=== PATIENT | male | born 1950 | race American Indian/Alaskan Native ===

== ENCOUNTER 2021-05-24 12:44 | Outpatient (CLI) | payer OTHER ==
--- NOTE | 2021-05-24 14:16 | Ultrasound Report ---
BILATERAL DIGITAL DIAGNOSTIC MAMMOGRAM WITH CAD CONVENTIONAL, 05/24/2021 LEFT COMPLETE BREAST ULTRASOUND CLINICAL INFORMATION / INDICATION: Patient presents for evaluation of left breast pain and swelling. MASTODYNIA TECHNIQUE: Digital bilateral mammographic imaging was performed. Complete ultrasound of all four (4) quadrants was performed. This examination was interpreted with the benefit of Computer-Aided Detectio n (CAD) analysis. COMPARISON: None FINDINGS: Breast Density: There are scattered areas of fibroglandular density. MAMMOGRAPHIC FINDINGS: No dominant mass, suspicious calcifications, or architectural distortion in ei ther breast. There is a moderate amount of asymmetric fibroglandular tissue in the central left breas t, most compatible with asymmetric gynecomastia. Targeted ultrasound was performed for further evalua tion. ULTRASOUND FINDINGS: Complete sonographic evaluation of all 4 quadrants and retroareolar region was p erformed. Complete ultrasound of the left breast reveals normal fibroglandular tissue. No suspiciou s cystic or solid lesion identified. IMPRESSION: 1. Asymmetric left gynecomastia accounts for left breast pain and swelling. Recommend clinical correl ation for potential underlying etiology. Follow up recommendation: No recall. BI-RADS Category 2: Benign. A "normal" or negative report should not discourage follow up or biopsy of a clinically significant f inding. A written summary of these findings will be mailed to the patient. The patient will be entered into a mammography reporting system which will generate a reminder letter for the patient's next appointmen t at the appropriate interval. According to the [employer], yearly mammograms are recommended starting at age 40 and continuing as long as a woman is in good health. Breast MRI is recommended for women with an татьяна roximately 20-25% or greater lifetime risk of breast cancer, including women with a strong family his tory of breast or ovarian cancer and women who have been treated for Hodgkin's disease. Signer Name: Orquidea Peaz MD Signed: 05/24/2021 2:12 PM Workstation Name: [id number]
== END 2021-05-24 12:45 | disposition home or self-care (01) ==
LOC: MAMMO 12:44
PROVIDERS: ATTEND Internal Medicine
DX: N62 Hypertrophy of breast (principal); N64.4 Mastodynia
CPT/HCPCS: 77066

== ENCOUNTER 2021-12-30 14:36 | Outpatient (CLI) | payer OTHER ==
--- NOTE | 2021-12-30 17:43 | Mammography Report ---
LEFT DIGITAL DIAGNOSTIC MAMMOGRAM WITH CAD , 12/30/2021 LEFT LIMITED BREAST ULTRASOUND CLINICAL INFORMATION / INDICATION: Patient has known gynecomastia in the left breast. He feels that t he left breast has enlarged. TECHNIQUE: Digital left mammographic imaging was performed. Limited ultrasound was performed. This ex amination was interpreted with the benefit of Computer-Aided Detection (CAD) analysis. COMPARISON: Prior mammogram 05/24/2021 FINDINGS: Breast Density: The breasts are heterogeneously dense, which may obscure small masses. MAMMOGRAPHIC FINDINGS: As noted on the prior mammogram from 05/24/2021, there is moderate amount of fi broglandular tissue throughout the central and subareolar left breast consistent with gynecomastia. G ynecomastia actually appears slightly improved compared with the prior mammogram. No discrete mass or abnormal calcifications are noted. Ultrasound will be performed for further evaluation. ULTRASOUND FINDINGS: Targeted ultrasound evaluation was performed of the area of interest. Sonograp hic evaluation of the left breast does not demonstrate any discrete mass or focal area of shadowing. There is heterogeneous tissue in the subareolar region consistent with known gynecomastia. IMPRESSION: No mammographic or sonographic evidence of malignancy. Prominent left gynecomastia is aga in noted. There may be subtle improvement in the degree of gynecomastia compared with 05/24/2021 prior exam. No new findings. Follow up recommendation: No recall. BI-RADS Category 2: BENIGN. A "normal" or negative report should not discourage follow up or biopsy of a clinically significant f inding. A written summary of these findings will be mailed to the patient. The patient will be entered into a mammography reporting system which will generate a reminder letter for the patient's next appointmen t at the appropriate interval. According to the [employer], yearly mammograms are recommended starting at age 40 and continuing as long as a woman is in good health. Breast MRI is recommended for women with an татьяна roximately 20-25% or greater lifetime risk of breast cancer, including women with a strong family his tory of breast or ovarian cancer and women who have been treated for Hodgkin's disease. Signer Name: Milena Solitario MD Signed: 12/30/2021 5:39 PM Workstation Name: [id number]
== END 2021-12-30 14:37 | disposition home or self-care (01) ==
LOC: MAMMO 14:36
PROVIDERS: ATTEND Internal Medicine
DX: R92.8 Other abnormal and inconclusive findings on diagnostic imaging of breast (principal)

== ENCOUNTER 2022-04-08 17:03 | Emergency (ER) | payer OTHER ==
[2022-04-08] MEDS ORDERED: SODIUM CHLORIDE 0.9% 1000 ML 1,000 ML IV ONE (17:12)
[2022-04-08 18:10] LABS: Basophils # (Auto) 0.1 K/mm3 (0.0-0.1); Basophils % (Auto) 1.8 % (0.0-1.8); Hematocrit 32.4 % (35.5-45.6); Hemoglobin 10.8 gm/dl (11.8-15.2); Lymphocytes # (Auto) 0.4 K/mm3 (1.2-5.4); Lymphocytes % (Auto) 11.1 % (13.4-35.0); Mean Corpuscular HGB Conc 34 % (32-34); Mean Corpuscular Volume 91 fl (84-94); Monocytes # (Auto) 0.3 K/mm3 (0.0-0.8); Monocytes % (Auto) 6.9 % (0.0-7.3); Platelet Count 163 K/mm3 (140-440); Red Blood Count 3.55 M/mm3 (3.65-5.03); Red Cell Distribution Width 14.5 % (13.2-15.2)
[2022-04-08 18:34] LABS: Calcium 9.4 mg/dL (8.4-10.2)
[2022-04-08 19:53] LABS: C-Reactive Protein 1.4 mg/dL (0.00-1.30)
--- NOTE | 2022-04-08 22:18 | Cat Scan Report ---
CT HEAD WITHOUT CONTRAST INDICATION / CLINICAL INFORMATION: AMS. TECHNIQUE: All CT scans at this location are performed using CT dose reduction for ALARA by means of automated exposure control. COMPARISON: CT head without contrast from 09/23/2021. FINDINGS: BRAIN PARENCHYMA: No acute intracranial hemorrhage. No evidence of recent infarct. No mass effect or midline shift. Chronic microvascular ischemic changes are again seen. VENTRICULAR SYSTEM/EXTRA-AXIAL SPACES: Ventricles are normal for age. No extra-axial fluid collection . ORBITS: Normal as visualized. SKELETAL SYSTEM/SOFT TISSUES: Normal bones and soft tissues. PARANASAL SINUSES/MASTOID AIR CELLS: No significant abnormality. ADDITIONAL FINDINGS: None. IMPRESSION: 1. No acute intracranial abnormality. No significant interval changes. Signer Name: Troy Wagoner MD Signed: 04/08/2022 10:14 PM Workstation Name: [id number]
[2022-04-08] MEDS ORDERED: levETIRAcetam 1000 MG/NS 0.75% 1,000 MG/100 ML BAG IV ONE (22:38)
--- NOTE | 2022-04-08 22:52 | Emergency Department Report ---
ED General Adult HPI - General Chief complaint: Seizure Stated complaint: SEIZURES PUI?: No Time Seen by Provider: 04/08/22 17:09 Source: family, EMS Mode of arrival: Stretcher Limitations: Altered Mental Status - History of Present Illness Initial comments: WITNESSED SEIZURE, PT POST ICTAL EMS GAVE 2MG ATIVAN pt had seizure at home pepr , hasn;t hadone in 1 year , on keppra, compliant, had another seizure on route here by ems ativan given post ictal now -: Sudden, minutes(s) Severity scale (0 -10): 0 Associated Symptoms: confusion. denies: denies other symptoms, chest pain, cough, diaphoresis, fever/chills Treatments Prior to Arrival: none - Related Data Previous Rx's Medication Instructions Recorded Last Taken Type HYDROcodone/APAP 5-325 [[place] 1 each PO Q6HR PRN #20 tablet 01/27/16 Unknown Rx 5-325 mg TAB] Sertraline [Zoloft] 25 mg PO QDAY #30 tablet 09/25/21 Unknown Rx Allergies Allergy/AdvReac Type Severity Reaction Status Date / Time No Known Allergies Allergy Unverified 02/15/14 15:37 ED Review of Systems ROS: Stated complaint: SEIZURES Other details as noted in HPI Constitutional: denies: chills, fever Eyes: denies: eye pain, eye discharge, vision change ENT: denies: ear pain, throat pain Respiratory: denies: cough, shortness of breath, wheezing Cardiovascular: denies: chest pain, palpitations Endocrine: no symptoms reported Gastrointestinal: denies: abdominal pain, nausea, diarrhea Genitourinary: denies: urgency, dysuria Musculoskeletal: denies: back pain, joint swelling, arthralgia Skin: denies: rash, lesions Neurological: denies: headache, weakness, paresthesias Psychiatric: denies: anxiety, depression Hematological/Lymphatic: denies: easy bleeding, easy bruising ED Past Medical Hx - Past Medical History Hx Hypertension: Yes Additional medical history: enlarged prostate - Social History Smoking Status: Never Smoker - Medications Home Medications: Home Medications Medication Instructions Recorded Confirmed Last Taken Type HYDROcodone/APAP 5-325 [[place] 1 each PO Q6HR PRN #20 tablet 01/27/16 Unknown Rx 5-325 mg TAB] Sertraline [Zoloft] 25 mg PO QDAY #30 tablet 09/25/21 Unknown Rx ED Physical Exam - General Limitations: Altered Mental Status General appearance: alert, postictal, other (drowsy but arousable , ) - Head Head exam: Present: atraumatic, normocephalic - Eye Eye exam: Present: normal appearance - ENT ENT exam: Present: mucous membranes moist - Neck Neck exam: Present: normal inspection - Respiratory Respiratory exam: Present: normal lung sounds bilaterally. Absent: respiratory distress - Cardiovascular Cardiovascular Exam: Present: regular rate, normal rhythm. Absent: systolic murmur, diastolic murmur, rubs, gallop - GI/Abdominal GI/Abdominal exam: Present: soft, normal bowel sounds - Rectal Rectal exam: Present: deferred - Extremities Exam Extremities exam: Present: normal inspection - Back Exam Back exam: Present: normal inspection - Expanded Neurological Exam Expanded Neurological exam: Present: innattentive Patient oriented to: Present: person, place Best Eye Response ([place]): (4) open spontaneously Best Motor Response ([place]): (6) obeys commands Best Verbal Response ([place]): (4) confused conversation [place] Total: 14 - Psychiatric Psychiatric exam: Present: normal affect, normal mood - Skin Skin exam: Present: warm, dry, intact, normal color. Absent: rash ED Course Vital Signs 04/08/22 04/08/22 04/08/22 17:04 17:15 17:31 Temperature 98.9 F Pulse Rate 110 H 105 H 92 H Respiratory 18 15 13 Rate Blood Pressure 121/79 Blood Pressure 138/96 [Left] O2 Sat by Pulse 99 97 96 Oximetry 04/08/22 04/08/22 04/08/22 17:45 17:49 18:01 Temperature Pulse Rate 91 H 91 H Respiratory 9 L 13 Rate Blood Pressure 121/79 121/79 Blood Pressure [Left] O2 Sat by Pulse 97 97 97 Oximetry 04/08/22 04/08/22 04/08/22 18:15 18:31 18:45 Temperature Pulse Rate 82 83 81 Respiratory 16 10 L 14 Rate Blood Pressure 121/79 137/86 137/86 Blood Pressure [Left] O2 Sat by Pulse 97 98 98 Oximetry 04/08/22 04/08/22 04/08/22 19:01 19:15 19:31 Temperature Pulse Rate 80 75 68 Respiratory 14 13 14 Rate Blood Pressure 148/86 148/86 145/84 Blood Pressure [Left] O2 Sat by Pulse 99 97 99 Oximetry ED Medical Decision Making - Lab Data Result diagrams: 04/08/22 17:43 04/08/22 17:43 - Radiology Data Radiology results: report reviewed, image reviewed - Medical Decision Making work up noted , unremarkable , seems post ictal , ativan given prior to arrival by EMS , spoke with his roby came to see him back to [facility] able to answer questions Critical care attestation.: If time is entered above; I have spent that time in minutes in the direct care of this critically ill patient, excluding procedure time. ED Disposition Clinical Impression: Altered mental status, Seizure Disposition: 01 HOME / SELF CARE / HOMELESS Is pt being admited?: No Does the pt Need Aspirin: No Condition: Stable Instructions: Epilepsy, [id number] Referrals: SHONA MUHAMMAD MD [Primary Care Provider] - 3-5 Days
[2022-04-08 23:01] VITALS: BP 132/72
== END 2022-04-08 23:58 | disposition home or self-care (01) ==
LOC: ED 17:03
DX: R56.9 Unspecified convulsions (principal); R41.82 Altered mental status, unspecified; I10 Essential (primary) hypertension
CPT/HCPCS: 36415; 70450; 80053; 82550; 85025; 86140; 96361; 96374; 99284; J1953; J7030; 80320; G0480